=== PATIENT | male | born 1960 | race American Indian/Alaskan Native ===

== ENCOUNTER 2018-04-27 16:25 | Emergency (ER) | payer OTHER ==
[~2018-04-27] VITALS: Ht 185.4 cm; Wt 52.0 kg
[2018-04-27 16:53] VITALS: BP 104/68
== END 2018-04-27 23:09 | disposition left against medical advice (07) ==
LOC: ER 16:25
DX: R30.9 Painful micturition, unspecified (principal); Z53.21 Procedure and treatment not carried out due to patient leaving prior to being seen by health care provider